=== PATIENT | female | born 1940 | race American Indian/Alaskan Native ===

== ENCOUNTER 2017-03-01 09:41 | Outpatient (CLI) | payer MEDICARE ==
--- NOTE | 2017-03-01 11:24 | Mammography Report ---
BONE DENSITY STUDY: Breast cancer. DEFINITIONS: BMD = Bone Mineral Density T-score = BMD related to mean peak bone mass of young adult (mean expressed in Standard Deviation) Z-score = Age matched BMD expressed in SD World Health Organization (WHO) Diagnostic Criteria Normal T-score > -1 SD Osteopenia T-score between -1 and -2.4 SD Osteoporosis T-score -2.5 SD or below FINDINGS: The weighted average BMD of lumbar spine L1-L4 is 0.954 with a T-score of . The weighted average BMD of the left hip is 1.039 with a T-score of 0.1. IMPRESSION: The patient's average T-score is diagnostic for osteopenia and average relative risk for fracture. NOTE: BMD is not the only risk factor for fracture; also consider factors such as the patient's age, risk of falling, previous osteoporotic fracture, family history of osteoporotic fractures, current smoker, and low body weight. Reynolds's triangle is a region of interest in femur, predominantly of trabecular bone. It is not a true anatomic site, and [facility] does not recommend its use clinically.
== END 2017-03-01 09:42 | disposition home or self-care (01) ==
LOC: SPVWC 09:41
PROVIDERS: ATTEND Internal Medicine Hematology & Oncology
DX: M85.88 Other specified disorders of bone density and structure, other site (principal); C50.412 Malignant neoplasm of upper-outer quadrant of left female breast; I10 Essential (primary) hypertension; Z78.0 Asymptomatic menopausal state; Z79.811 Long term (current) use of aromatase inhibitors
CPT/HCPCS: 77080

== ENCOUNTER 2019-02-20 08:49 | Outpatient (CLI) | payer MEDICARE ==
--- NOTE | 2019-02-20 14:17 | Nuclear Medicine Report ---
BONE SCAN: History: Malignant neoplasm of upper quadrant of the left femur all breast. Comparison: No relevant comparison. After injection of isotope, gamma camera imaging of the bony system was done. There is physiologic activity in the soft tissue and renal structures. Injection site in the right wrist region is noted. There is subtle accumulation of the radiotracer in the left ischium which is concerning for a solitary metastasis. No additional areas of suspicious uptake are identified. Mild degenerative uptake is noted in the shoulders, knees and feet. IMPRESSION: Suspicious radiotracer activity overlying the left ischium which is concerning for a solitary bony metastasis. Consider correlation with CT.
== END 2019-02-20 08:50 | disposition home or self-care (01) ==
LOC: NM 08:49
PROVIDERS: ATTEND Internal Medicine Hematology & Oncology
DX: M19.012 Primary osteoarthritis, left shoulder (principal); M19.011 Primary osteoarthritis, right shoulder; M17.0 Bilateral primary osteoarthritis of knee; C50.412 Malignant neoplasm of upper-outer quadrant of left female breast; I10 Essential (primary) hypertension; Z90.49 Acquired absence of other specified parts of digestive tract
CPT/HCPCS: 78306; A9503

== ENCOUNTER 2019-02-21 08:20 | Outpatient (CLI) | payer MEDICARE ==
--- NOTE | 2019-02-21 09:15 | Ultrasound Report ---
ULTRASOUND ABDOMEN COMPLETE: TECHNIQUE: Transabdominal ultrasound with color Doppler interrogation. HISTORY: Epigastric pain, right upper quadrant abdominal pain, functional dyspepsia. COMPARISON: none. FINDINGS: LIVER: The liver parenchyma is slightly echogenic consistent with mild diffuse fatty infiltration or other parenchymal disease. No liver mass is appreciated. BILIARY SYSTEM: A small amount of sludge and tiny stones are suspected in the gallbladder. The gallbladder is normal size and contour. The CBD measures 3.1 mm. PANCREAS: Normal. SPLEEN: Normal. 7.2 cm in length. KIDNEYS: Within normal limits. No hydronephrosis. AORTA/IVC: Normal. ASCITES: None. IMPRESSION: Cholelithiasis. No evidence for acute cholecystitis. Slightly echogenic liver parenchyma suggesting fatty infiltration or other parenchymal disease.
== END 2019-02-21 08:21 | disposition home or self-care (01) ==
LOC: US 08:20
PROVIDERS: ATTEND Internal Medicine Gastroenterology
DX: K80.20 Calculus of gallbladder without cholecystitis without obstruction (principal); I12.9 Hypertensive chronic kidney disease with stage 1 through stage 4 chronic kidney disease, or unspecified chronic kidney disease; N18.9 Chronic kidney disease, unspecified; Z90.49 Acquired absence of other specified parts of digestive tract
CPT/HCPCS: 76700

== ENCOUNTER 2019-03-24 08:39 | Outpatient (CLI) | payer MEDICARE ==
[2019-03-24] MEDS ORDERED: KINEVAC IV ONE ×2 (10:06→10:21)
--- NOTE | 2019-03-24 12:10 | Nuclear Medicine Report ---
Finger mass and HIDA scan. 03/24/2019. HISTORY: Gallstones. Tracer: Technetium 99m Choletec 5 mCi IV injection. FINDINGS: Following injection of the above tracer, there was prompt uptake by the liver with rapid ex cretion into the biliary tree, gallbladder and bowel. Following stimulation of the gallbladder, the e jection fraction was calculated at 19%. Normal range is 30% and above. IMPRESSION: Abnormal gallbladder ejection fraction. Signer Name: Leonel Shabazz MD Signed: 03/24/2019 12:05 PM Workstation Name: [id number]
== END 2019-03-24 08:40 | disposition home or self-care (01) ==
LOC: NM 08:39
PROVIDERS: ATTEND Internal Medicine Gastroenterology
DX: K82.8 Other specified diseases of gallbladder (principal); I10 Essential (primary) hypertension
CPT/HCPCS: 78227; A9537; J2805